=== PATIENT | male | born 1975 | race Caucasian/White ===

== ENCOUNTER 2017-12-04 20:00 | Emergency (ER) | payer OTHER ==
[~2017-12-04] VITALS: Ht 180.3 cm; Wt 81.6 kg
[~2017-12-04 20:00] MED LIST: AMOXICILLIN500 M2 PO; FLEXERIL10 MG PO; FLUOXETINE HYDR20 MG PO; MEDROL DOSEPAK1 PAC PO; MEDROL4 M2 PO; OXYCODONE-ACET1 EACH PO; PERCOCET 325 MG1 TA2 PO; PHENERGAN12.5 M1 PO; PRILOSEC 20MG C20 MG PO; SEROQUEL 100MG100 MG PO; UNISOM SLEEP AI25 MG PO; VENTOLIN HFA18 GM INH; ZANTAC150 M1 PO; ZOFRAN ODT4 MG PO
[2017-12-04 20:09] VITALS: BP 117/74
== END 2017-12-04 22:05 | disposition admitted as inpatient to this hospital (09) ==
LOC: ERH 20:00
DX: R06.02 Shortness of breath (principal)